=== PATIENT | male | born 1965 | race Asian ===

== ENCOUNTER → 2019-06-14 | Outpatient (CLI) | payer OTHER ==
[2019-06-14 09:32] LABS: BASOPHIL % 0.8 % (0-2); PLATELET COUNT 309 x10^3mcL (130-400); RED CELL DISTRIBUTION WIDTH 13.2 % (11.5-14.5)
[2019-06-14 09:57] LABS: ALBUMIN 4.3 g/dL (3.4-5.0); BILIRUBIN TOTAL 0.9 mg/dL (0.20-1.00); CALCIUM 8.9 mg/dL (8.5-10.1); CARBON DIOXIDE 28.6 mmol/L (21-32); CREATININE SERUM 1.8 mg/dL (0.7-1.3); POTASSIUM SERUM 3.9 mmol/L (3.5-5.1)
== END | disposition home or self-care (01) ==
LOC: LB 08:58
DX: Z00.00 Encounter for general adult medical examination without abnormal findings (principal); I10 Essential (primary) hypertension

== ENCOUNTER 2020-02-10 15:21 | Emergency (ER) | payer OTHER ==
[~2020-02-10] VITALS: Ht 167.6 cm; Wt 70.8 kg
[2020-02-10 15:25] VITALS: Ht 167.6 cm; Wt 70.8 kg
[2020-02-10 15:31] VITALS: BP 166/77
== END 2020-02-10 15:31 | disposition home or self-care (01) ==
LOC: ED 15:21
DX: I10 Essential (primary) hypertension (principal); Z76.0 Encounter for issue of repeat prescription